=== PATIENT | female | born 1940 | race Caucasian/White ===

== ENCOUNTER → 2016-07-21 | Outpatient (CLI) | payer OTHER ==
[~2016-07-21] MED LIST: CELEBREX50 MG; CIPRO250 MG PO; DETROL1 MG; PREVACID15 MG; PROTONIX40 MG PO
== END | disposition home or self-care (01) ==
LOC: US 13:13
DX: S80.12XA Contusion of left lower leg, initial encounter (principal); S99.912A Unspecified injury of left ankle, initial encounter; M17.12 Unilateral primary osteoarthritis, left knee; M19.072 Primary osteoarthritis, left ankle and foot; M76.52 Patellar tendinitis, left knee; M79.89 Other specified soft tissue disorders; X58.XXXA Exposure to other specified factors, initial encounter; Y93.89 Activity, other specified; Y92.89 Other specified places as the place of occurrence of the external cause; Y99.8 Other external cause status

== ENCOUNTER 2017-07-12 01:18 | Emergency (ER) | payer OTHER ==
[~2017-07-12] VITALS: Ht 162.5 cm; Wt 51.7 kg
[2017-07-12 02:14] LABS: BASO # 0.1 10*3/uL (0.0-0.1); BASO % 0.3 % (0.0-1.0); EOS # 0.1 10*3/uL (0.0-0.4); EOS % 0.5 % (1.0-4.0); HEMATOCRIT 36.2 % (37.0-47.0); HEMOGLOBIN 11.9 g/dl (12.0-16.0); LYMPH % 6.8 % (27.0-41.0); MEAN CORPUSCULAR HGB 30.9 pg (27.0-31.0); MEAN CORPUSCULAR HGB CONC 32.9 g/dl (33.0-37.0); MEAN PLATELET VOLUME 10.2 fl (9.6-12.3); MONO # 1.5 10*3/uL (0.1-1.0); MONO % 9.4 % (3.0-9.0); NEUT # 12.7 10*3/uL (2.3-7.9); NEUT % 82.5 % (47.0-73.0); PLATELET COUNT AUTOMATED 274 10*3/uL (130-400); RED BLOOD COUNT 3.85 10*6/uL (4.10-5.10); RED CELL DISTRI WIDTH 12.4 % (0-14.5); WHITE BLOOD COUNT 15.4 10*3/uL (4.8-10.8)
[2017-07-12 02:29] LABS: ALBUMIN 3.9 gm/dl (3.1-4.5); ALKALINE PHOSPHATASE 63 U/L (45-117); BUN 24 mg/dl (7-24); CHLORIDE 105 mmol/L (98-107); CREATININE 0.69 mg/dL (0.55-1.02); LIPASE 266 U/L (73-393); POTASSIUM 3.8 mmol/L (3.5-5.1); SGOT/AST 12 IU/L (3-35); SGPT/ALT 20 U/L (12-78); SODIUM 141 mmol/L (136-145); TOTAL PROTEIN 6.9 gm/dL (6.4-8.2)
[2017-07-12] MEDS ORDERED: VOLTAREN100 GM T (03:46)
[2017-07-12] MEDS ORDERED: Percocet 325 MG1 TAB PO (03:46)
[2017-07-12] MEDS ORDERED: ZOFRAN ODT4 MG SL (03:46)
== END 2017-07-12 04:06 | disposition home or self-care (01) ==
LOC: ED 01:18
PROVIDERS: Emergency Medicine Emergency Medical Services
DX: M75.102 Unspecified rotator cuff tear or rupture of left shoulder, not specified as traumatic (principal); M77.9 Enthesopathy, unspecified; Z90.710 Acquired absence of both cervix and uterus; Z79.899 Other long term (current) drug therapy; Z88.0 Allergy status to penicillin; Z88.2 Allergy status to sulfonamides; Z88.5 Allergy status to narcotic agent

== ENCOUNTER → 2020-10-02 | Outpatient (CLI) | payer OTHER ==
[~2020-10-02] MED LIST changes: +Percocet 325 MG1 TAB PO; +VOLTAREN100 GM T; +ZOFRAN ODT4 MG SL
== END | disposition home or self-care (01) ==
LOC: RAD 10:36
PROVIDERS: ATTEND Chiropractor
DX: M47.812 Spondylosis without myelopathy or radiculopathy, cervical region (principal); M51.36 Other intervertebral disc degeneration, lumbar region; M47.816 Spondylosis without myelopathy or radiculopathy, lumbar region; M48.02 Spinal stenosis, cervical region

== ENCOUNTER → 2021-06-25 | Outpatient (CLI) | payer OTHER | END | disposition home or self-care (01) | LOC: RAD 15:11 | PROVIDERS: ATTEND Internal Medicine | DX: M25.561 Pain in right knee (principal) ==

== ENCOUNTER → 2022-08-18 | Outpatient (CLI) | payer OTHER | END | disposition home or self-care (01) | LOC: RAD 11:47 | PROVIDERS: ATTEND Internal Medicine | DX: R06.02 Shortness of breath (principal) ==